=== PATIENT | male | born 1955 | race American Indian/Alaskan Native ===

== ENCOUNTER 2018-10-14 19:38 | Emergency (ER) | payer MEDICARE ==
[2018-10-14 19:38] VITALS: BMI 19.3
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
[2018-10-15 00:13] VITALS: TEMP 98.9
--- NOTE | 2018-10-15 00:49 | ED PDOC ---
- Laboratory Results Result Diagrams: 10/15/18 01:15 10/15/18 01:15 - ECG O2 Sat by Pulse Oximetry: 99 (RA) Pulse Ox Interpretation: Normal Medical Decision Making Medical Decision Making: Case endorsed to gag writer, Iftikhar NARVAEZ, at 0045. Pertinent details reviewed. Patient pending lab results and re-evaluation. CTs reviewed. 0100 EKG: NSR @ 83bpm (-) ST elevation, QTc 430 0130 Patient sleeping comfortably, no distress noted. CBC and BMP grossly unremarkable. 0300 Patient remains asleep in ED. 0500 Patient remains asleep in ED. 0530 On re-evaluation, patient reports improvement of symptoms. On exam, patient AAOx3, in no acute distress. Vitals stable. Lab/ Diagnostic results d/w the patient in great detail. Diagnosis of alcohol intoxication, malingering d/w the patient. Based on history, exam and diagnostic results, plan will be for outpatient follow up with PMD. Patient instructed to follow-up with pmd / referral provided / the clinic in 1- 2 days without fail. Advised to take medication as prescribed. Return to the emergency room at any time for any new or worsening symptoms. Patient states he fully agrees with and understands discharge instructions. States that he agrees with the plan and disposition. Verbalized and repeated discharge instructions and plan. I have given the patient opportunity to ask any additional questions. Disposition Counseled Patient/Family Regarding: Studies Performed, Diagnosis, Need For Followup - Clinical Impression Clinical Impression: Alcohol intoxication, Malingering, Homelessness - POA Present On Arrival: Falls Or Trauma (possible) - Disposition Referrals: [facility] [Outside] Disposition: Routine/Home Disposition Time: 05:30 Condition: FAIR Additional Instructions: The emergency medical care you received today was directed at your acute symptoms. If you were prescribed any medication, please fill it and take as directed. It may take several days for your symptoms to resolve. Return to the Emergency Department if your symptoms worsen, do not improve, or if you have any other problems. Please contact your doctor in 2 days for re-evaluation and follow up / or call one of the physicians/clinics you have been referred to that are listed on the Patient Visit Information form that is included in your discharge packet. Bring any paperwork you were given at discharge with you along with any medications you are taking to your follow up visit. Our treatment cannot replace ongoing medical care by a primary care provider (PCP) outside of the emergency department. Instructions: Effects of Alcohol on Your Health, Alcohol Abuse and Alcoholism (DC), Alcohol Use - When Is Drinking a Problem? Forms: [employer] [facility] (Swazi) Print Language: HUNGARIAN Results - Lab Results Lab Results: 10/15/18 10/15/18 10/14/18 01:15 01:15 21:38 WBC 3.5 L RBC 4.14 L Hgb 13.0 Hct 38.9 MCV 93.9 MCH 31.4 H MCHC 33.4 RDW 13.8 Plt Count 233 MPV 8.3 Neut % (Auto) 61.2 Lymph % (Auto) 30.2 Mckinley % (Auto) 6.6 Eos % (Auto) 0.5 Baso % (Auto) 1.5 Neut # (Auto) 2.2 Lymph # (Auto) 1.1 Mckinley # (Auto) 0.2 Eos # (Auto) 0.0 Baso # (Auto) 0.1 Sodium 141 Potassium 3.8 Chloride 101 Carbon Dioxide 25 Anion Gap 19 BUN 10 Creatinine 0.7 L Est GFR ( Amer) > 60 Est GFR (Non-Af Amer) > 60 POC Glucose (mg/dL) Random Glucose 92 Calcium 9.1 Alcohol, Quantitative 158 H 10/14/18 20:38 WBC RBC Hgb Hct MCV MCH MCHC RDW Plt Count MPV Neut % (Auto) Lymph % (Auto) Mckinley % (Auto) Eos % (Auto) Baso % (Auto) Neut # (Auto) Lymph # (Auto) Mckinley # (Auto) Eos # (Auto) Baso # (Auto) Sodium Potassium Chloride Carbon Dioxide Anion Gap BUN Creatinine Est GFR ( Amer) Est GFR (Non-Af Amer) POC Glucose (mg/dL) 250 H Random Glucose Calcium Alcohol, Quantitative
[2018-10-15 01:21] LABS: BASO # 0.1 K/uL (0.0-0.2); BASO % 1.5 % (0.0-2.0); EOS % 0.5 % (0.0-4.0); LYMPH # 1.1 K/uL (1.0-4.3); LYMPH % 30.2 % (20.0-40.0); MEAN CELL VOLUME 93.9 fl (80.0-94.0); MEAN CORPUSCULAR HEMOGLOBIN 31.4 pg (27.0-31.0); MEAN CORPUSCULAR HGB CONC 33.4 g/dL (33.0-37.0); MEAN PLATELET VOLUME 8.3 fl (7.2-11.7); MONO # 0.2 K/uL (0.0-0.8); MONO % 6.6 % (0.0-10.0); NEUT # 2.2 K/uL (1.8-7.0); NEUT % 61.2 % (50.0-75.0); NRBC % 0.2 % (0.0-0.0); RBC 4.14 Mil/uL (4.40-5.90); RED CELL DISTRIBUTION WIDTH 13.8 % (11.5-14.5); WHITE BLOOD COUNT 3.5 K/uL (4.8-10.8)
[2018-10-15 01:31] LABS: BLOOD UREA NITROGEN 10 mg/dl (9-20); CALCIUM 9.1 mg/dL (8.4-10.2); GFR NON-AFRICAN AMERICAN > 60
[2018-10-15 06:14] VITALS: BP 140/82; PULSE 75; RESP 17; O2SAT 100
--- NOTE | 2018-10-15 07:22 | CARD ---
APPROVED REPORT Date of service: 10/15/2018 EKG Measurement Heart [id number] CT [id number] <Conclusion> Normal sinus rhythm Normal ECG
--- NOTE | 2018-10-15 09:33 | RAD ---
Date of service: 10/15/2018 HISTORY: chest pain COMPARISON: No prior. FINDINGS: LUNGS: No acute infiltrates bilaterally. Right hemidiaphragm appears elevated. PLEURA: No significant pleural effusion identified, no pneumothorax apparent. CARDIOVASCULAR: No aortic atherosclerotic calcification present. Normal cardiac size. No pulmonary vascular congestion. OSSEOUS STRUCTURES: No significant abnormalities. VISUALIZED UPPER ABDOMEN: A catheter is seen at the right hemidiaphragm incidentally, partially captured in this exam. OTHER FINDINGS: None. IMPRESSION: No infiltrates bilaterally. Elevated right hemidiaphragm. No pulmonary vascular congestion or cardiomegaly.
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
== END 2018-10-15 06:13 | disposition home or self-care (01) ==
LOC: H.ER 19:38
DX: F10.129 Alcohol abuse with intoxication, unspecified (principal); S09.90XA Unspecified injury of head, initial encounter; Y04.0XXA Assault by unarmed brawl or fight, initial encounter; Y92.89 Other specified places as the place of occurrence of the external cause; Z59.0 Homelessness; Z88.6 Allergy status to analgesic agent; Z88.0 Allergy status to penicillin; F41.9 Anxiety disorder, unspecified; H27.131 Posterior dislocation of lens, right eye
CPT/HCPCS: 70450; 70486; 71045; 80048; 82948; 85025; 93005; 99285; G0480

== ENCOUNTER 2018-10-16 05:20 | Emergency (ER) | payer MEDICARE ==
[2018-10-16 05:20] VITALS: BMI 19.3
[2018-10-16 05:51] VITALS: TEMP 98.2
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
[2018-10-16 08:38] VITALS: BP 135/92; PULSE 75; RESP 16; O2SAT 100
== END 2018-10-16 08:43 | disposition home or self-care (01) ==
LOC: H.ER 05:20
DX: S05.91XA Unspecified injury of right eye and orbit, initial encounter (principal); Y04.0XXA Assault by unarmed brawl or fight, initial encounter; Y92.89 Other specified places as the place of occurrence of the external cause; Z88.0 Allergy status to penicillin; Z88.6 Allergy status to analgesic agent